=== PATIENT | male | born 1940 | race Caucasian/White ===

== ENCOUNTER 2024-02-15 20:04 | Emergency (ER) | payer OTHER, MEDICARE ==
[2024-02-15 20:31] VITALS: BP 163/89; PULSE 91; RESP 20; TEMP 97.5; BMI 25.8
[2024-02-15] MEDS ORDERED: DALBAVANCIN HCL 500 MG VIAL (RESTRICTED TO ID ONLY) IVPB ONE (21:05)
[2024-02-15 21:06] LABS: HEMOGLOBIN 13.7 G/dL (11.7-16.9); MCH 32.7 pg (25.7-33.7); MCHC 34.1 g/dl (32.0-35.9); MEAN CELL VOLUME 95.7 fl (80-96); MEAN PLT VOLUME 12.4 fl (7.5-11.1); PLATELET COUNT 73.1 10^3/uL (134-434); RBC 4.18 10^6/uL (4.00-5.60); RDW 14.2 % (11.9-15.9); WHITE BLOOD COUNT 8.5 10^3/uL (4.0-10.8)
[2024-02-15] MEDS: DALBAVANCIN HCL 1,500 MG in DEXTROSE 5%-WATER - 500 ML IVPB ONE (21:21)
[2024-02-15 21:27] LABS: ALBUMIN 4.4 g/dl (3.4-5.0); BILIRUBIN,TOTAL 0.8 mg/dl (0.2-1); CALCIUM 9.5 mg/dl (8.5-10.1); CREATININE 1.3 mg/dl (0.6-1.3); POTASSIUM 4.3 mmol/L (3.5-5.1); TOT PROT 7.6 g/dl (6.4-8.2); URIC ACID 6.8 mg/dl (2.6-7.2)
== END 2024-02-15 22:18 | disposition home or self-care (01) ==
LOC: FER 20:04
DX: L03.113 Cellulitis of right upper limb (principal)
CPT/HCPCS: 36415; 73630-TC-RT-FY; 80053; 84550; 85027; 96365; 99284-25; J0875